=== PATIENT | female | born 1945 | race African-American/Black ===

== ENCOUNTER 2020-12-10 13:07 | Inpatient (IN) | payer BC ==
[~2020-12-10] VITALS: Ht 157.5 cm; Wt 84.5 kg
--- NOTE | ~2020-12-10 | EMS ---
[facility] [address] [place] [address] EMS Patient Care Report Name: OSCAR LAWSON Room #: 213-P ADM IN M.R.#: [id number] Admission: 12/10/20 Attend Phys: Benji Calderon MD Discharge: Date of : 49 Report #: [id number] THIS REPORT FOR: //name// Report Transmitted: 12/12/2020 13:13 EMS Care Summary [place], [place]/[facility] Incident [id number] @ 12/10/2020 12:33 Incident Location [address] [place] [address] Patient OSCAR PAZSGraceTODD Female, 75 Years 1945 Patient Address [address] [place], [place] [id number] Patient History Hypertension (HTN),Gastro-Esophageal Reflux Disease (GERD),End Stage Renal Disease (ESRD),Anemia,Neuropathy,Hyperparathyroidism,Chronic Kidney Disease, Patient Allergies No known allergies, Patient Medications Ondansetron, Heparin, Folic acid, Docusate Sodium, Torsemide, Trazodone, Alprazolam, Diphenhydramine, Carvedilol, Omeprazole, Lidocaine, Amlodipine, Loperamide, Loratadine, Chief Complaint HYPOTENSION Disposition Transported No Lights/Ophiem Dispatch Reason Sick Person Transported To [facility] Narrative P36 AND M537 DISPATCHED TO A DIALYSIS CENTER ON A SICK PERSON. P36 ARRIVED FIRST AND ESTABLISHED PT CONTACT. UPON EMS ARRIVAL, PT WAS STILL IN DIALYSIS [facility] [address] [place] [address] EMS Patient Care Report Name: OSCAR LAWSON Room #: 213-P ADM IN M.R.#: [id number] Admission: 12/10/20 Attend Phys: Benji Calderon MD Discharge: Date of : 49 Report #: [id number] CHAIR. P36 WAS OBTAINING VITAL SIGNS AND HAD PT CONNECTED TO 15L OF O2 VIA NRB. P36 MEDIC STATED PT WAS HYPOTENSIVE DURING DIALYSIS. DIALYSIS STAFF ATTEMPTED FLUID BOLUS BUT WAS UNSUCCESSFUL IN RAISING PT'S BP. PT DID NOT COMPLETE DIAYSIS. INITIAL BP FOR P36 WAS 66/50. P36 ALSO STATED PT HAD AN INITAL O2 SAT OF 87% ON 5L VIA NASAL CANNULA. P36 STATED DIALYSIS STAFF HAD PLACED PT ON O2, PT WAS NOT NORMALLY ON O2. P36 PLACED PT ON 15L OF O2 VIA NRB. P36 MONITOR SHOWED PT TO BE IN A NORMAL SINUS RHYTHM. 15L OF O2 INCREASED PT'S O2 SAT TO 97%. PT WAS A&O X 4. PT WAS LIFTED OUT OF CHAIR AND PLACED ONTO STRETCHER. PT WAS SECURED WITH SEATBELTS. PT WAS KEPT ON 15L OF O2. ADDITIONAL VITAL SIGNS WERE OBTAINED IN THE AMBULANCE. PT'S O2 SAT REMAINED AT 97%. MONITOR SHOWED PT TO STILL BE IN A NORMAL SINUS RHYTHM. PT TRANSPORTED TO [facility]. ARRIVED AT HOSPITAL. PT TRANSPORTED TO ER ROOM 8. PT WAS LIFTED OFF OF STRETCHER AND ONTO ER BED. SIDE RAILS WERE RAISED AND PT CARE WAS TRANSFERRED TO RECEIVING ER NURSING STAFF. Initial Vitals @PTAP: 67,BP: 66/50,Pain: 0/10,GCS: 15,SpO2: 97,CO Suspected: false @12:58P: 92,R: 16,BP: 57/53,Pain: 0/10,GCS: 15,CO: 0,SpO2: 98,Revised Trauma: 10,CO Suspected: false @12:55P: 95,R: 16,BP: 76/49,Pain: 0/10,GCS: 15,CO: 0,SpO2: 97,Revised Trauma: 11,CO Suspected: false Assessments @12:44MENTAL:Event Oriented,Place Oriented,Time Oriented,Person Oriented,SKIN:Pale,HEENT:LUNG SOUNDS:ABDOMEN:PELVIS//GI:EXTREMITIES:PULSE:Radial: 2+ Normal,NEURO: Impression Hypotension Procedures @PTA3-Lead ECGResponse: UnchangedSucceeded@PTAOxygen FlowRate: 15 Device: Non Re-breather Mask (NRB) Response: ImprovedSucceeded@12:44ALS AssessmentResponse: UnchangedSucceeded@12:48StretcherResponse: Unchanged@12:48Oxygen FlowRate: 15 Device: Non Re-breather Mask (NRB) Response: UnchangedSucceeded Timeline EMAIL OPERATIONS MANAGER,3-Lead ECG,Response: UnchangedSucceeded, EMAIL OPERATIONS MANAGER,Oxygen FlowRate: 15 Device: Non Re-breather Mask (NRB) Response: ImprovedSucceeded, EMAIL OPERATIONS MANAGER,BP: 66/50 M,PULSE: 67,RR: R,SPO2: 97 Ox,ETCO2: ,BG: ,PAIN: 0,GCS: 15, 12:32,Call Received 12:32,Dispatch Notified 12:33,Dispatched 12:34,En Route 12:42,On Scene [facility] [address] [place] [address] EMS Patient Care Report Name: OSCAR LAWSON Room #: 213-P ADM IN M.R.#: [id number] Admission: 12/10/20 Attend Phys: Benji Calderon MD Discharge: Date of : 49 Report #: [id number] 12:44,At Patient 12:44,ALS Assessment,Response: UnchangedSucceeded, 12:48,Stretcher,Response: Unchanged 12:48,Oxygen FlowRate: 15 Device: Non Re-breather Mask (NRB) Response: UnchangedSucceeded, 12:55,BP: 76/49 M,PULSE: 95,RR: 16 R,SPO2: 97 Ox,ETCO2: ,BG: ,PAIN: 0,GCS: 15, 12:57,Depart Scene 12:58,BP: 57/53 M,PULSE: 92,RR: 16 R,SPO2: 98 Ox,ETCO2: ,BG: ,PAIN: 0,GCS: 15, 13:02,At Destination 13:33,Call Closed Disclaimer v1.1 Copyright 2020 [employer] This EMS Care Summary contains data elements from the applicable legal record (which may be displayed differently). It is designed to provide pertinent information for the following purposes: continuity of care, clinical quality, and state data reporting. The complete legal record is available to ED staff and administrators of the receiving hospital in [employer] Patient Tracker. All data is provided "as is."
[~2020-12-10 13:07] MED LIST: ADVAIR 100-501 EACH INH; ALBUTEROL2.5 MG/0.5 INH; ALDACTONE50 MG PO; AMBIEN 10 MG TA10 MG PO; AMITRIPTYLINE H50 M2 PO; ASPIRIN81 M2 PO; BENTYL10 MG PO; CLARITIN10 MG PO; COZAAR 25 MG TA25 M1 PO; COZAAR100 MG PO; FLEXERIL PO; GLUCOPHAGE XR500 MG PO; GLUCOPHAGE500 MG PO; HYDROCODON-ACE1 EAC7 PO; KLOR-CON 10 ER10 MEQ PO; LABETALOL HCL200 MG PO; LASIX 20 MG TAB20 MG PO; NORVASC10 MG PO; NORVASC5 MG PO; SALONPAS PATCH1 EAC1; SPIRONOLACTONE25 M1 PO; TRANDATE300 MG PO; VENTOLIN HFA 1818 GM INH; VITAMIN D1000 UNI2 PO; VITAMIN D31000 UNI2 PO
[2020-12-10 13:08] VITALS: BP 93/55
[2020-12-10] MEDS ORDERED: ALPRAZOLAM 0.0.25 M1 PO (13:21)
[2020-12-10] MEDS ORDERED: BANOPHEN25 M1 PO (13:22)
[2020-12-10] MEDS ORDERED: LOPERAMIDE2 MG PO (13:22)
[2020-12-10] MEDS ORDERED: CARVEDILOL12.5 MG PO (13:22)
[2020-12-10] MEDS ORDERED: OMEPRAZOLE 20 M20 M1 PO (13:23)
[2020-12-10] MEDS ORDERED: CLARITIN10 M3 PO (13:23)
[2020-12-10] MEDS ORDERED: ZOFRAN4 MG PO (13:23)
[2020-12-10] MEDS ORDERED: DESYREL150 MG PO (13:24)
[2020-12-10] MEDS ORDERED: DEMADEX20 MG PO (13:24)
[2020-12-10 13:43] LABS: HEMATOCRIT 32.9 % (37.0-47.0); HEMOGLOBIN 10.5 gm/dL (12.0-15.0); MCH 27.2 pg (26.0-34.0); MCHC 31.8 g/dL (28.0-37.0); MCV 85.5 fL (80.0-100.0); PLATELET COUNT 207 thou/uL (150-400); RBC 3.85 mil/uL (4.20-5.00); RDW 19.7 % (10.5-14.5); WBC 21.3 thou/uL (4.0-11.0)
[2020-12-10 14:05] LABS: CREATININE 5.6 mg/dL (0.6-1.0); POTASSIUM 4.7 mmol/L (3.5-5.1)
[2020-12-10 14:10] LABS: ALBUMIN 2.3 g/dL (3.4-5.0); MAGNESIUM 1.6 mg/dL (1.8-2.4); TOTAL BILIRUBIN 0.6 mg/dL (0.2-1.0); TOTAL PROTEIN 6.4 g/dL (6.4-8.2); TROPONIN-I 0.06 ng/mL (<0.06)
[2020-12-10 14:13] LABS: ABSOLUTE NEUTROPHILS 17.7 thou/uL (1.4-8.2); METAMYELOCYTES 2 %; MYELOCYTES 1 %; POLYCHROMASIA OCCASIONAL
[2020-12-10 14:15] LABS: ANISOCYTOSIS 2+
[2020-12-10 22:59] VITALS: BP 79/52
[2020-12-10 23:58] VITALS: BP 78/50
[2020-12-11 00:34] VITALS: BP 83/50
[2020-12-11 04:45] VITALS: BP 92/46
--- NOTE | 2020-12-11 06:43 | NUR ---
PT ARRIVED VIA CART TO ROOM 213. PT IS ALERT AND ORIENT TIMES THREE, FORGETFUL AT TIMES TO SITUATION. HYPOTENSIVE; ASYMPTOMATIC PER PT. TOLERATING CLEAR LIQ. WOUND VAC WAS REMOVED IN ED, DRESSING OVER ABD WOUND INTACT, NOT DRY. TWO COLOSTOMY BAGS NOTED WITH PINK STOMAS. SR PER MONITOR. WILL CONTINUE TO MONITOR.
[2020-12-11 07:50] VITALS: BP 96/53
--- NOTE | 2020-12-11 09:33 | EKG ---
[address] [address] ELECTROCARDIOGRAM REPORT Name: OSCAR LAWSON Room #: 213- ADM IN M.R.#: [id number] Admission: 12/10/20 Attend Phys: Benji Calderon MD Discharge: Date of : 49 Report #: [id number] [facility] ED Test Date: 2020-12-10 Test Time: 13:53:36 Pat Name: OSCAR BROOKS Department: Room: Count includes the [facility] Gender: F Elder Assistant: unknown : 1945 Requested By: Teofilo Ramachandran Order Number: [id number] MD: Joey Gordon Measurements Intervals Grant Rate: 95 P: 52 WV: 184 QRS: -47 QRSD: 85 T: 109 QT: 352 QTc: 443 Interpretive Statements Sinus rhythm Abnormal R-wave progression, early transition LVH with secondary repolarization abnormality Inferior infarct, old Compared to ECG 11/22/2013 21:26:58 Sinus bradycardia no longer present Grant has shifted leftward Poor R wave progression is now present Electronically Signed On 12-11-2020 9:33:31 CDT by Joey Gordon [email or web address] <ELECTRONICALLY SIGNED> By: Joey Gordon MD, [facility] 12/11/20 0933 [id number] [id number] Joey Gordon MD, [facility] /EPI
[2020-12-11 11:20] VITALS: BP 83/49
--- NOTE | 2020-12-11 11:39 | NUR ---
cm completed the initial assessment with pt who indicated she was at "[facility]" for rehab, but pt does not want to rtrn to skilled. pt wants to return home with w/hh. pt has hx of hh but dont recall what agency she used nor does she have a preference. [facility]. pt goes to outpt [facility] [id number] at 10am. pt has w/c, wlkr and cane. pt has hx with [facility] as well. the current kaitlynn is for pt to d/c on Mon or Mon with hh. Jordan ([facility]) [phone] -phone fax - [phone]
[2020-12-11 15:20] VITALS: BP 92/58
--- NOTE | 2020-12-11 15:27 | NUR ---
OSTOMY CARE; PT AWAKE, ALERT, COOPERATIVE, VERY PLEASANT, STATES ABD SURGERY WAS DONE ~2 WEEKS AGO AT [facility], BUT COULD NOT REMEMBER NAME OF SURGEON, ILEOSTOMY STOMA RED FLAT W/ SKIN SURFACE, DRAINING BILISH LIQ STOOL, PERISTOMAL AREA EXCORIATED, BLEEDING, MARATHON PREP APPLIED W/ ANTHONY CUT TO FIT POUCH W/ ADAPT RING UNDER WAFER, COLOSTOMY STOMA L SIDE ABD, BROWNISH WITT NONVIABLE TISSUE, SCANT DRAINAGE BILISH STOOL, PERISTOMAL AREA ADRIAN MARATHON PREP APPLIED AND 2 PIECE POUCH, ABD WOUND MIDLINE DRAINING LARGE AMT LIQ BILISH STOOL, AREA VERY EXCORIATION, ADRIAN, BLEEDING, VALENTÍN ANGELES STUD BEEF CATTLE FARMER COORDINATOR HERE, ASSISTING W/ CARE, PACKED WOUND W/ DRAWTEX AND WOUND DRAINAGE SUPERVISOR WATERPROOFING APPLIED, MARATHON PREP ALSO APPLIED W/ ADAPT RING UNDER POUCH, SUGGEST TO REPLACE/REPACK WOUND W/ DRAWTEX UNTIL SEEN BY DR MILLER IN AM, SUPPLIES AT BS RECOMMENDATIONS; ANTHONY CUT TO FIT POUCH TO ILEOSTOMY AND COLOSTOMTY STOMA, CHANGE PRN WOUND DRAINAGE SUPERVISOR WATERPROOFING TO ABD WOUND, PACK W/ DRAWTEX NEEDED, HAS OPEN WINDOW TO ASSESS WOUND DISTILLERY MANAGER AWARE
[2020-12-11 20:50] VITALS: BP 90/57
[2020-12-12 04:45] VITALS: BP 93/60
--- NOTE | 2020-12-12 07:00 | NUR ---
RECIEVED PT FROM DAY SHIFT, PT C/O PAIN AND PT STATES SHE FEEL RESTLESS AND HAVE PAIN. BELA SWEAT BAND SEPARATOR CALLED FOR PAIN MEDIATION. PT RESTED APPROX 4 HOURS , BUT REMAINS RESTLESS. NSR ON HAND STONER, WILL CONTINUE WITH CURRENT PLAN OF CARE.
[2020-12-12 08:10] VITALS: BP 109/60
[2020-12-12 11:35] VITALS: BP 97/55
[2020-12-12 15:30] VITALS: BP 85/53
[2020-12-12 20:15] VITALS: BP 86/51
[2020-12-13 04:02] VITALS: BP 73/43; BP 73/52
[2020-12-13 04:04] LABS: CALCIUM 9.1 mg/dL (8.5-10.1); POTASSIUM 4.3 mmol/L (3.5-5.1)
[2020-12-13 04:09] LABS: CREATININE 4.5 mg/dL (0.6-1.0)
--- NOTE | 2020-12-13 04:13 | NUR ---
PT RESTING QUIETLY IN BED POST DIALYSIS, PRN PAIN MEDS GIVEN FOR ABD PAIN, ASSESSMENT CHARTED, VSS, CON'T TO MONITOR PER PPOC.
[2020-12-13 04:22] LABS: HEMATOCRIT 34.3 % (37.0-47.0); MCH 27.8 pg (26.0-34.0); MCHC 32.1 g/dL (28.0-37.0); MCV 86.4 fL (80.0-100.0); RBC 3.98 mil/uL (4.20-5.00); RDW 20.3 % (10.5-14.5); WBC 10.8 thou/uL (4.0-11.0)
[2020-12-13 05:36] LABS: HEPATITIS B SURFACE AG Negative (Negative)
[2020-12-13 06:04] VITALS: BP 86/58
--- NOTE | 2020-12-13 10:23 | HC ---
[facility] [place] [address] [address] [place] [address] CONSULTATION Name: BARRERA BROOKSOSCAR D Room #: 213-P ADM IN M.R.#: [id number] Admission: 12/10/20 Attend Phys: Benji Calderon MD Discharge: Date of : 49 Report #: [id number] THIS REPORT FOR: cc: Rosalia Zuñiga Mohammad K. DO Jetmore, Allen B. MD ~ WOUND CARE CONSULTATION NOTE REASON FOR CONSULTATION: Status post perforated diverticulitis with possible enterocutaneous fistula. HISTORY OF PRESENT ILLNESS: The patient is a 75-year-old woman with end-stage renal disease on hemodialysis and recent abdominal surgery at [facility] for apparent perforated diverticulitis. Unfortunately, we do not have the operative note from that facility, but by patient history, she had perforated diverticulitis requiring surgery. She has an apparent ileostomy, which began to have high output drainage. She had been discharged home and has developed drainage from the wound, possible enterocutaneous fistula. There is a second draining wound to the lateral abdomen. Etiology not certain. The patient at home had noticed increased ostomy output, abdominal pain and drainage from the wound. Admission white blood count on 12/10, ,300. Admission albumin 2.3. Wound care was consulted due to drainage from the abdominal wound for ileostomy care and for possible enterocutaneous fistula. PAST MEDICAL HISTORY: Hypertension, end-stage renal disease, also known history above. The patient awoke from surgery with a wound of the forehead of uncertain etiology, whether this is a pressure ulcer or burn. This appears to be healing. FAMILY HISTORY: Hypertension. SOCIAL HISTORY: Lives at home with a sister. PHYSICAL EXAMINATION: GENERAL: Shows an alert, elderly woman, alert, pleasant, conversant. She has a 4 cm horizontal linear wound of the forehead with some black discoloration of the skin and slightly open epithelializing area. Clinically, this appears to possibly be a pressure ulcer. HEENT: Mucous membranes are moist. NECK: Supple. LUNGS: Respirations are unlabored. ABDOMEN: Obese. Abdominal exam shows an apparent ileostomy, which is pouched with high volume of clear green liquid output. There is a vertical incision lateral to this with intact ellis. The lower portion of the wound is open and dehisced with an open wound measuring 3.5 x 1 x 4 cm deep. This is draining some slightly green fluid of small volume, but is lined with granulation tissue. [address] [address] CONSULTATION Name: OSCAR LAWSON Room #: 213-P [facility] IN [facility].#: [id number] Admission: 12/10/20 Attend Phys: Benji Calderon MD Discharge: Date of : 49 Report #: [id number] This had in it Drawtex, which was mildly saturated and the Drawtex was replaced. There is healthy granulation tissue in the wound. On the lateral abdomen, there is a pouched wound of uncertain etiology. This has minimal volume. I did not remove the pouch. Extremities show no wound. IMPRESSION: 1. End-stage renal disease with hemodialysis. 2. Leukocytosis. White blood count 21,300. 3. Severe protein calorie malnutrition, albumin 2.3. 4. Obesity. 5. History of recent perforated diverticulitis with abdominal surgery, details uncertain ____ facility, I am uncertain whether she had a resectional procedure and whether ileostomy was created at that time. 6. 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 7. Lateral wound, which is pouched, uncertain whether this is fistula or by patient's history of urostomy. At this point in time, the ileostomy was well pouched with high output. The abdominal surgical wound was well controlled with daily packing with a full sheet of Drawtex cut in 1 strip with a pouch over this. There is a lateral wound with small volume, which is also pouched. We will need to review outside operative notes to define postsurgical anatomy. The patient is being treated with antibiotics, kept n.p.o. and hydration to keep up with ileostomy output. Wound care team will follow. <ELECTRONICALLY SIGNED> By: Sandro Lehman MD 12/13/20 1023 0627 [id number] Sandro Lehman MD /nt
[2020-12-13 16:50] VITALS: BP 87/55
--- NOTE | 2020-12-13 19:31 | NUR ---
DRESSING CHANGED TO ABDOMINAL WOUNDS. LEAKAGE NOTED TO UROSTOMY AND NEW BAG PLACED. SHE DID COMPLAIN OF PAIN AND PRN PAIN MEDS ADMINISTERED. WILL CONT WITH PLAN OF CARE.
[2020-12-13 22:35] VITALS: BP 84/58
[2020-12-14 04:33] VITALS: BP 64/39
[2020-12-14 07:45] VITALS: BP 64/34
--- NOTE | 2020-12-14 08:31 | NUR ---
PTS ILEOSTOMY BAG LEAKING AND CHANGED AND REINFORCED MULTIPLE TIMES THRU THE NIGHT, FISTULA SIGHT ALSO BECAME SATURED FROM ILIEOSTOMY AND CHANGED IT WITH A WET TO DRY DRESSING AND COVERED IT WITH OPSITE AND ORDERED A CONSULT FOR THE BUSINESS SUPPORT SPECIALIST, WHO CAME BY THIS AM, SKIN IS IRITATTED AND WEEPING, ONE STAPLE REMAINS AT TOP OF INSISION, PRN PAIN MEDS GIVEN FOR C/O OF ABD PAIN, REPOSITIONED AND CLEANED UP FREQUENTLY, LEFT HAND IV INFILTRATED AND REPLACED IN LEFT WRIST, BP REMAIN LOW IN 70'S AND 80'S MIDODRINE INCREASED TO QID, GIVEN EARLY THIS AM FOR BP 64/39, ZOFRAN GIVEN FOR C/O NAUSEA, L CHEST TESSEO REMAINS INTACT, REPORT GIVEN TO NEXT SHIFT TO CON'T PPOC.
--- NOTE | 2020-12-14 09:05 | NUR ---
OSTOMY CARE; ALERT, AWAKE, COOPERATIVE, POUCHES BOTH LEAKING, NEW POUCH TO R SIDE ILEOSTOMY, SKIN VERY EXCORIATED, ADRIAN, NO BLEEDING, MARATHON SKIN PREP APPLIED, ADAPT RING AND 2 PIECE CUT TO FIT HIGH OUTPUT POUCH CONNECTED TO DEP DRAINAGE SYSTEM, STOMA RED VIABLE FLAT W/ SKIN SURFACE, BILISH LIQ STOOL PRESENT, COLOSTOMY STOMA L SIDE, BROWNISH WITT TISSUE SLOUGHING OFF, PERISTOMAL SKIN SLIGHTLY ADRIAN, NOT BLEEDING, MARATHON PREP AND 2 PIECE ANTHONY CUT TO FIT APPLIANCE APPLIED, SCANT BILISH LIQ STOOL PRESENT, ABD WOUND MEASURES 5CM L X 3CM W X 5.5CM D, TISSUE MORE ADRIAN, SOME HEALING, NO BILISH STOOL DRAINAGE NOTED TODAY, CLEANSED AND REPACKED W/ DRAWTEX, ABD PAD, TRANSPARENT DRSG, SUPPLIES AT RECOMMENDATIONS; MARATHON SKIN PREP TO BOTH STOMAS EXCORIATED SKIN, HIGH OUTPUT ANTHONY POUCH TO ILEOSTOMY R SIDE, CUT TO FIT ANTHONY POUCH TO L SIDE COLOSTOMY, ADAPT RINGS UNDER WAFER WOUND CARE PER WOUND DR STRUCTURES ENGINEER AWARE
[2020-12-14 11:45] VITALS: BP 72/42; BP 75/42
--- NOTE | 2020-12-14 15:58 | NUR ---
Patient admits from [facility] where she has been rec skilled care. Patient prev at [place], dc to [facility]. From [facility] to [facility]. Patient dializes at [facility]. she prev lives with spouse. She has steps to enter home then all needs on one level. patient has wc, walker, at home. She prev utilized [facility] [employer] [facility] [facility] van for transport to/from dialysis. Patient does not want to return to skilled care. she admitted to [facility] from dialysis clinic. Sp with Anaya Longoria and requested they send face sheet and mars. Therapy evals in process. wound vac patient has is from [facility].
[2020-12-14 16:10] VITALS: BP 71/41
--- NOTE | 2020-12-14 16:41 | NUR ---
PT RESTING COMFORTABLY. PT HAS BEEN HYPOTENSIVE THROUGHOUT SHIFT, MULTIPLE INTERVENTIONS HAVE BEEN DONE PER PROVIDERS ORDERS. PT ASYMPTOMATIC. PT LEFT WRIST PIV INFILTRATED, IV DC'D. NEW PIV PLACED BY IV ACCESS TEAM. PT MAY POSSIBLY BE TRANSFERED TO ICU FOR VASOPRESSOR ADMINISTRATION. ILIOSTOMY/COLOSTOMY/MIDLINE FISTULA DRESSINGS CHANGED BY OSTOMY NURSE. ILIOSTOMY NOW CONNECTED TO BEGUM CATHETER BAG AND DRAINING WELL. WOUND CARE AND ID HAVE BEEN CONSULTED. PT HAS BEEN THOUROUGHLY UPDATED AND EDUCATED ON PT CONDITION AND POC. PT NOT PROGRESSING TOWARDS POC. PT AFEBRILE, ANEURIC, POOR APPETITE.
[2020-12-14 17:33] LABS: HEMATOCRIT 36.5 % (37.0-47.0); HEMOGLOBIN 11.7 gm/dL (12.0-15.0); MCH 27.3 pg (26.0-34.0); MCV 85.4 fL (80.0-100.0); RBC 4.28 mil/uL (4.20-5.00); RDW 19.7 % (10.5-14.5); WBC 15.1 thou/uL (4.0-11.0)
[2020-12-14 20:15] VITALS: BP 149/48
[2020-12-15 04:45] VITALS: BP 116/60
--- NOTE | 2020-12-15 05:09 | NUR ---
PATIENTS CARS WERE ASSUMED AT SHIFT CHANGE. PATIENT WS ASSESSED AND MEDS WERE PASSED. PATIENT VITALS ARE STABLE THIS SHIFT. A CULTURE ORDER PLACED AT 1500 YESTERDAY WAS FOUND. CULTURE WAS SENT AT APPROX 2058. PATIENT WAS ABLE TO SLEEP WELL THIS SHIFT. ROUNDS WERE MADE. THE BED ALARM IS ON. THE BED IS IN A LOW AND LOCKED POSITION.
[2020-12-15 07:20] VITALS: BP 191/101
[2020-12-15 10:40] VITALS: BP 87/56
[2020-12-15 11:55] VITALS: BP 160/47
[2020-12-15 15:40] VITALS: BP 102/43
--- NOTE | 2020-12-15 16:21 | NUR ---
Patient evaled for acute rehab and patient not accepted could not tolerate acute rehab. patient strongly wants to return home at discharge. she does not want to return to [facility]. Spoke with dtr Sharon [phone] she reports patient has family support. she can stay with patient and her son can assist as well. Discussed her with need to return to community dialysis and transport to from difficult. Left skilled list in room for dtr to review.
--- NOTE | 2020-12-15 18:28 | NUR ---
ASSESSMENT CHARTED- MEDS PER JUN - DONNA DIET AND FLUIDS. GIVEN ZOFRAN X 2 DOSES FOR CO'S OF NAUSEA WITH EFFECT - OXY FOR HEADACHE WITH EFFECT - PT TESSIO CATH CLOGGED THIS AM - DIALYSIS NURSE USED [facility] AND DISLYSIS GIVEN THIS AFTERNOON. DRESSING TO ABDO COMPLETED WITH MODE AMOUNT OF GREEN THICK PUSS/ DRAINAGE PRESENT. SKIN AROUND WOUND SITE RED/ IRRITATED AND PAIANFUL WHEN TAPE REMOVED. R FISTULA NON FUCTIONING. COMPLETEING DIALYSIS. NO CO'S AT THE PRESENT TIME.
[2020-12-15 20:15] VITALS: BP 156/52
[2020-12-16 04:45] VITALS: BP 125/55
[2020-12-16 07:30] VITALS: BP 113/56
--- NOTE | 2020-12-16 10:41 | NUR ---
OSTOMY CARE; AWAKE, ALERT, PLEASANT, ILEOSTOMY POUCH R SIDE ABD STILL INTACT, CHANGED TO ASSSESS PERISTOMAL SKIN, STILL ADRIAN, SLIGHT IMPROVEMENT, MARATHON PREP APPLIED W/ ADAPT RING UNDER WAFER, HIGH OUTPUT POUCH CONNECTED TO DEP DRAINAGE, LIQ BILISH STOOL NOTED, PHOTO TAKEN OF ILEOSTOMY SITE AND MID LINE ABD WOUND, PLACED IN CHART, COLOSTOMY POUCH STILL INTACT L SIDE ABD, NO OUTPUT, MIDLINE WOUND W/ SCANT YELLOWISH DRAINAGE THIS AM, REPACKED W/ DRAWTEX, GAUZE, ABD PAD, PERIWOUND AREA STILL ADRIAN, MARATHON PREP APPLIED,SUPPLIES AT BS, PAGING DR PEREZ TO REVIEW MIDLINE ABD WOUND CARE RECOMMENDATIONS; CHANGE POUCH Q 2-4 DAYS AND PRN, EMPTY PRN BAND AND CUFF CUTTER AWARE CHANGE POUCH Q 2-4 DAYS AND PRN, EMPTY PRN
[2020-12-16] MEDS ORDERED: MIDODRINE HCL 55 M1 PO (10:54)
[2020-12-16] MEDS ORDERED: CHOLESTYRAMINE L4 GM PO (10:55)
[2020-12-16] MEDS ORDERED: ALPRAZOLAM 0.0.25 M1 PO (10:55)
[2020-12-16] MEDS ORDERED: LOPERAMIDE2 MG PO (10:56)
[2020-12-16] MEDS ORDERED: ZOFRAN4 MG PO (10:57)
[2020-12-16] MEDS ORDERED: SOLU-CORTE100 MG/21 CHEWABLE (10:58)
[2020-12-16] MEDS ORDERED: ACIDOPHILUS1 EAC4 PO (10:59)
[2020-12-16] MEDS ORDERED: LOMOTIL TABLET1 EACH PO (10:59)
[2020-12-16] MEDS ORDERED: OXYCODONE HCL 55 MG PO (10:59)
[2020-12-16] MEDS ORDERED: CIPRO500 M1 PO (11:00)
[2020-12-16] MEDS ORDERED: METRONIDAZOLE500 M4 PO (11:01)
[2020-12-16] MEDS ORDERED: FLAGYL500 M1 PO (11:01)
[2020-12-16 11:30] VITALS: BP 78/38
--- NOTE | 2020-12-16 12:18 | HC ---
[facility] [place] [address] CONSULTATION Name: BARRERA BROOKSOSCAR D Room #: 213-P ADM IN M.R.#: [id number] Admission: 12/10/20 Attend Phys: Benji Calderon MD Discharge: Date of : 49 Report #: [id number] THIS REPORT FOR: cc: Rosalia Zuñiga Mohammad K. DO Barry, Joseph W. MD ~ DATE OF SERVICE: 12/15/2020 INFECTIOUS DISEASE CONSULTATION ATTENDING PHYSICIAN: Dr. Jean. REASON FOR EVALUATION: Abdominal wound dehiscence. The patient with colitis. HISTORY OF PRESENT ILLNESS: Chart reviewed and the patient was examined. This is a 75-year-old woman with extensive medical history in particular last few months. She has known history of diverticulitis. This was at some point complicated by perforation. Postoperative course was complicated by hematoma. She has had multiple surgeries and had multiple hospital stays including both acute care as well as long-term care facilities in rehabs. She ultimately has a colostomy as well as an ileostomy. She got a mid abdominal longitudinally oriented incision that apparently has dehisced as well. She has high output from the ileostomy, minimal from the colostomy at this point. She notes not having significant pain associated with the abdomen. On questioning additionally denies systemic illness of other than progressive weakness and fatigue. She has had no fevers, chills. Appetite has been fair. Denies any pulmonary-related complaints. She has not required supplemental oxygen. To date initially had two blood cultures collected at time of admission, which are sterile thus far. An abdominal culture sent yesterday gram stain showed many PMNs, few gram-negative rods and rare gram-positive cocci. It is notable that she has been on multiple courses of antibiotics she states, although these were other facilities initiated on therapy with ceftriaxone and Flagyl at the time of admission. ALLERGIES: DESCRIBED CODEINE WITH DUMPING STOMACH CRAMPING. CURRENT MEDICATIONS: Include pantoprazole, hydrocortisone, cholestyramine, loperamide, midodrine, oxycodone, alprazolam, ciprofloxacin, lorazepam, metronidazole, p.r.n. analgesics and antiemetics. PAST MEDICAL HISTORY: As described above. In addition, had hypertension, has diabetes mellitus, non-insulin requiring; IBS, obstructive sleep apnea, TIAs, previous hysterectomy, cholecystectomy, tonsillectomy. SOCIAL HISTORY: Nonsmoker. No illicit drug use. Apparently, occasional ethanol in the past. [facility] [address] [place] [address] CONSULTATION Name: BARRERA BROOKSOSCAR Room #: 213-P [facility] IN [facility]#: [id number] Admission: 12/10/20 Attend Phys: Benji Calderon MD Discharge: Date of : 49 Report #: [id number] FAMILY HISTORY: Noncontributory. REVIEW OF SYSTEMS: Otherwise, unremarkable with the exception of the above. PHYSICAL EXAMINATION: GENERAL: She appears chronically ill, undernourished. I think there is a component of depression, mild to moderate distress. VITAL SIGNS: Temperature 97, pulse 72, respirations 18, blood pressure is 87/56. SKIN: Warm, dry, no rashes. She is not diaphoretic. HEENT: Normocephalic. Extraocular muscles intact. NECK: Supple. LUNGS: Diminished breath sounds. ABDOMEN: Extensive scarring. EXTREMITIES: Bilateral ostomies in place. Ileostomy on the right. Colostomy on the left. Scattered dressing, midline incision that has dehisced, malodor, some debridement and drainage noted. GENITOURINARY AND RECTAL: Deferred. LABORATORY DATA: Early culture is pending. Gram stain as noted above. Few gram-positive rods, rare gram-positive cocci and many PMNs. Lactic acid of 2.3. CBC from yesterday; white count of 15.1, H and H 11.7 and 36.5, platelets of 254. Electrolytes previously 12/13/2020, sodium 136, potassium 4.3, chloride 96, bicarbonate is 30, anion gap of 10, BUN and creatinine 22 and 4.5, glucose of 83. Initial CT abdomen and pelvis done on admission noted anterior abdominal wall surgical clips, small fluid collection anterior right pannus, left-sided colostomy, mild thickening, stranding around the valve. No focal loculated fluid collections, large right adrenal mass, fat containing favors myolipoma. ASSESSMENT: Abdominal wound dehiscence in setting of multiple surgeries, bilateral abdominal ostomy in setting of diabetes mellitus, it has been complicated by end-stage renal disease on dialysis. PLAN: We will continue empiric therapy at this point, await culture results. At this point, she is not exhibiting evidence of drained pyogenic focus of infection. Certainly at risk including ____ related infectious complications. Continue to monitor expectantly. We will add incentive spirometry. Continue to follow expectantly. <ELECTRONICALLY SIGNED> By: Juan Echeverria MD 12/16/20 1218 [id number] [id number] Juan Echeverria MD /nt
[2020-12-16 16:00] VITALS: BP 81/55
--- NOTE | 2020-12-16 16:10 | NUR ---
Report from unit cm that pt adament about going home and dtr Sharon is supportive of this [phone]. Family willing to provided 24hr care and get her in and out for Dialysis [facility] t-th-sat 1100am. Our route delivery clerk will contact dtr to review ostomy care. Referral faxed and called to Griselda in intake at the A. They will accept and can see her sat/or monday. Unit cm working on referral to [facility] bed/pina lift and RW. Pt has a w/c. Tank Charger updated SOLID WASTE LANDFILL TECHNICIAN at [facility] and she indicates the family will need to start mo medicaid [place] and share a fare apps on line. They are not able to help get the pt in and out of the car. Will f/u with pt's dtr regarding the logistics and if they are able to realistically provide care.
[2020-12-16 16:21] LABS: ABSOLUTE NEUTROPHILS 11.5 thou/uL (1.4-8.2); BASOPHILS 0.1 % (0.0-2.0); HEMATOCRIT 36.3 % (37.0-47.0); HEMOGLOBIN 11.2 gm/dL (12.0-15.0); LYMPHOCYTES 6.6 % (24.0-44.0); MCH 27.5 pg (26.0-34.0); MCHC 30.8 g/dL (28.0-37.0); MCV 89.2 fL (80.0-100.0); MONOCYTES 3.8 % (1.0-8.0); PLATELET COUNT 208 thou/uL (150-400); POLYS 89.5 % (36.0-66.0); RBC 4.07 mil/uL (4.20-5.00); RDW 19.6 % (10.5-14.5); WBC 12.9 thou/uL (4.0-11.0)
--- NOTE | 2020-12-16 16:30 | NUR ---
Patient sp with phys and reports she wants to return home. No facility and no rehab. Phys put in dc orders. Sp with dtr Sharon she reports family not prepared for home today. Patient requests dc Monday when her family can assist with her care. Dr Jean notified. Dtr to have training on monday for ostomy and wound care. Patient has sliding board and wc at home. She reports her brother is Rn he is retired and can assist. Dtr reports she can stay with patient intially. Discussed with patient and dtr concern for transport for community dialysis. Patient insists she wants to return home. Sp with Estella. Patient will need pina lift, hosp bed and walker for home. [facility] can deliver to home 12/17. Faxed clinical to [facility]. SHAJI WALTON accepting.
[2020-12-16 16:35] LABS: ALBUMIN 2.4 g/dL (3.4-5.0); CREATININE 4.4 mg/dL (0.6-1.0); TOTAL BILIRUBIN 0.5 mg/dL (0.2-1.0); TOTAL PROTEIN 5.7 g/dL (6.4-8.2)
[2020-12-16 16:37] LABS: POTASSIUM 5.4 mmol/L (3.5-5.1)
[2020-12-16 19:49] VITALS: BP 87/48
--- NOTE | 2020-12-17 03:23 | NUR ---
PT REMAIN ALERT AND ORIENT TIMES THREE, FORGETFUL ON OCCASSIONS. BP SOFT. DENIES SOB, DOES C/O GENERALIZD PAIN AND NAUSEA. PRN PAIN MED AND ZOFRAN GIVEN WITH GOOD RESULTS. VSS, SR PER MONITOR. POOR PROGRESS TOWARDS DC GOALS. WILL CONTINUE TO MONITOR.
[2020-12-17 05:24] VITALS: BP 88/49
[2020-12-17 08:34] VITALS: BP 98/62
[2020-12-17 11:40] VITALS: BP 98/63
[2020-12-17 16:04] VITALS: BP 81/52
--- NOTE | 2020-12-17 16:33 | NUR ---
PT IS PROGRESSING TOWARDS CARE, HAD DIALYSIS FOR 3 HORS TODAY, NO FLUIDS TAKEN OUT. ILEOSTOMY AND COLOSTOMY IN PLACE. MIDLINE DRESSING CHANGED PER ORDER. FALL PREC. IN PLACE. ANTICIPATING FOR D/C TMR
--- NOTE | 2020-12-17 17:31 | NUR ---
Followup visit made with pt at bedside. She is aware that Anaay of [facility] gilbert was here to citrus picker wound vac and offer pt other facility options within their network as well as a plan B if she goes home and needs to readmit to them. Pt aware but anxious to move forward with plan for home tomorrow. She indicates that she was using [employer] fare for rides to dialysis a few months ago prior to this major illness. Message left for [facility] to confirm she can resume rides with them next Monday for dialysis. She is adament her family can get her there if she needs to reapply for [facility] services. Script for dme being faxed to [facility] and they were setting up delievery today in coordination with the dtr. Dtr Jaqui to come in for training on ostomy care/wounds tomorrow. Therapy also called and spoke with her about pt's limited mobility. Will confirm dme setup and hh with [facility] tomorrow along with next dialysis tx, can the pt go from Monday to Monday.
[2020-12-17 17:37] VITALS: BP 81/52
--- NOTE | 2020-12-17 17:56 | NUR ---
FAXED RX SCRIPT TO [facility] FOR 1) JOCELYN LIFT, 2) SEMI-ELECTRIC HOSPITAL BED, AND 3) FRONT WHEEL WALKER. WILL CONFIRM WITH JAZMIN/LIAISON THAT THEY RECEIVED. [facility] FAX [phone]; Venancio [phone] JAZMIN
[2020-12-17 19:28] VITALS: BP 109/60
--- NOTE | 2020-12-17 22:30 | NUR ---
PT RESTING IN BED, EXPRESSING THAT SHE WANTS TO FALL ASLEEP AND NOT BE AWAKENED. ILEOSTOMY AND COLOSTOMY INTACT. CHEST TESIO INTACT. PT REQUESTED APPLESAUCE AND PROVIDED. LUNGS DIMINISHED. PT REQUESTING PRN PAIN MED BE PROVIDED AT NEXT AVAILABLE TIME. BED ALARM ON.
[2020-12-18] VITALS (8 sets, daily range): BP systolic 74–109; BP diastolic 38–62
--- NOTE | 2020-12-18 10:14 | NUR ---
OSTOMY/WOUND CARE; ALERT, COOPERATIVE, VERY PLEASANT, DAUGHTER UNABLE TO COME THIS AM TO SEE WOUND/OSTOMYC CARE, FAMILY MEMBER TO COME THIS PM, INSTRUCTED BREAKER ENGINEER TO MAKE SURE FAMILY KNOWS HOW TO EMPTY POUCH THAT WILL NEED TO BE DONE PRIOR TO HOME HEALTH VISIT TOMORROW, ABD WOUND HEALING, SCANT DRAINAGE, SEE PROCESS INTERVENTIO FOR WOUND DETAILS, PERIWOUND AREA HEALING, PHOTOS TAKEN OF STOMAS AND WOUND AND PLACED IN CHART, HIGH OUTPUT TO ILEOSTOMY BLOCKED W/ UNDIGESTED FOOD PARTICLES, STOOL THICKER, CHANGED USING HOLLSITER CONVEX 1 05/08' POUCH DRAINAGE, PERISTOMAL SKIN IMPROVING, MARATHON SKIN PREP APPLIED W/ ADAPT RING, NO STOOL PER COLOSTOMY, NEW POUCH HOLLSITER CUT TO FIT APPLIED, PERISTOMAL SKIN INTACT, SUPPLIES W/ INSTRUCTIONS PLACED AT BS RECOMMENDATIONS; DAILY DRSG CHANGES ABD WOUND, W/ AQUALCEL AG, CHANGE ILEOSTOMY POUCH W 2-4 DAYS AND PRN BREAKER ENGINEER AWARE
--- NOTE | 2020-12-18 12:48 | NUR ---
Dc plan for home today confirmed with pt at bedside and the care team. Pt's dtr will be here this afternoon for ostomy/wound care trng. Hh orders faxed to the [facility] for start of care this weekend. DC summary and flow sheets faxed to [facility] for resumption of outpt tomorrow. [employer] called back and the pt is still active with them. She will call lino with her acct number and schedule for w/c van ride in am to dialysis 11am chair time. DME being delievered by willard cantor 2:30-4:30 today. Pt has let her family know so they will be there. Nicholas almaraz vouchered per [facility] transport for 7-8pm transport home tonight and pt's family will be there to help get her in(5steps into house/5 steps up to bedroom). Pt has her w/c at home in the garage. Family is willing to transport the pt if share a fare is not able to in the am. All parties updated. Pt excited to dc home today.
--- NOTE | 2020-12-18 15:12 | NUR ---
PT IS AXOX3, PT NOT ALWAYS AWARE OF TIME. VS SOFT BP, AFEBRILE, SR ON MONITOR. CASE MGMT CONSULTED. PT IS TO D/C HOME WITH HH. HOME HEALTH ARRANGEMENTS INCLUDE JOCELYN LIFT, ELECTRIC WHEELCHAIR, AND HOSPITAL BED. PT ALSO HAS ARRANGEMENTS FOR DIALYSIS TOMORROW, 12/19. POC IS TO CONTINUE ABX THERAPY AT HOME. OSTOMY WOUND CARE COMPLETED THIS AM. PT TO GO HOME WITH OSTOMY ITEMS. FALL PRECAUTIONS IN PLACE. AWAITING TRANSPORTATION THIS EVENING FOR HOME.
--- NOTE | 2020-12-18 18:39 | NUR ---
PT D/C AT 1800 TRANSPORTED BY CART TO HOME. ALL WOUND CARE ITEMS PROVIDED. PT EDUCATION CONDUCTED. NO CONCERNS AT THIS TIME.
== END 2020-12-18 18:10 | disposition home health service (06) | DRG 391 ==
LOC: ER 13:07 → EROBS 18:12 → 2N 18:12
PROVIDERS: Emergency Medicine; Internal Medicine; Internal Medicine Nephrology; Specialist; ADMIT Hospitalist; ATTEND Hospitalist
PROC: 5A1D70Z Performance of Urinary Filtration, Intermittent, Less than 6 Hours Per Day (ICD-10-PCS; principal; 2020-12-11)
DX: K52.9 Noninfective gastroenteritis and colitis, unspecified (principal); R57.1 Hypovolemic shock; N18.6 End stage renal disease; E43 Unspecified severe protein-calorie malnutrition; T81.30XA Disruption of wound, unspecified, initial encounter; I12.0 Hypertensive chronic kidney disease with stage 5 chronic kidney disease or end stage renal disease; K57.20 Diverticulitis of large intestine with perforation and abscess without bleeding; Z20.822 Contact with and (suspected) exposure to COVID-19; Z96.652 Presence of left artificial knee joint; I95.9 Hypotension, unspecified; D72.829 Elevated white blood cell count, unspecified; G47.33 Obstructive sleep apnea (adult) (pediatric); E27.9 Disorder of adrenal gland, unspecified; D63.8 Anemia in other chronic diseases classified elsewhere; E03.9 Hypothyroidism, unspecified; E11.22 Type 2 diabetes mellitus with diabetic chronic kidney disease; G47.00 Insomnia, unspecified; R53.81 Other malaise; F41.9 Anxiety disorder, unspecified; E66.01 Morbid (severe) obesity due to excess calories; Z90.710 Acquired absence of both cervix and uterus; Z90.49 Acquired absence of other specified parts of digestive tract; Z86.73 Personal history of transient ischemic attack (TIA), and cerebral infarction without residual deficits; Z93.3 Colostomy status; Z88.6 Allergy status to analgesic agent; Z68.34 Body mass index [BMI] 34.0-34.9, adult; Z82.49 Family history of ischemic heart disease and other diseases of the circulatory system; Z83.3 Family history of diabetes mellitus
CPT/HCPCS: 10081; 32100

== ENCOUNTER 2020-12-21 15:33 | Inpatient (IN) | payer OTHER ==
[~2020-12-21] VITALS: Ht 160 cm; Wt 81.6 kg
--- NOTE | ~2020-12-21 | EMS ---
[address] [address] EMS Patient Care Report Name: OSCAR LAWSON Room #: 205-P [facility] IN ..#: [id number] Admission: 12/21/20 Attend Phys: Benji Calderon MD Discharge: 12/24/20 Date of : 49 Report #: [id number] THIS REPORT FOR: //name// Report Transmitted: 12/25/2020 10:15 EMS Care Summary [place], [place]/[facility] Incident [id number] @ 12/21/2020 14:51 Incident Location [address] [place] [address] Patient OSCAR FOLEY Female, 75 Years 1945 Patient Address [address] [place] [address] Patient History Hypertension (HTN),Gastro-Esophageal Reflux Disease (GERD),End Stage Renal Disease (ESRD),Anemia,Neuropathy,Hyperparathyroidism,Chronic Kidney Disease, Patient Allergies No known allergies, Patient Medications Amlodipine, Folic acid, Torsemide, Omeprazole, Loperamide, Trazodone, Heparin, Alprazolam, Lidocaine, Carvedilol, Docusate Sodium, Ondansetron, Loratadine, Diphenhydramine, Chief Complaint ABD PAIN Disposition Transported Lights/[place] Dispatch Reason Abdominal Pain/Problems Transported To [facility] Narrative M41 DISPATCHED TO ABD PAIN. [address] [place] [address] EMS Patient Care Report Name: OSCAR LAWSON Room #: 205-P [facility] IN M.R.#: [id number] Admission: 12/21/20 Attend Phys: Benji Calderon MD Discharge: 12/24/20 Date of : 49 Report #: [id number] M41 AOS AND FOUND A FEMALE LYING IN HER BED. PT STATES THAT SHE HAS BEEN EXPERIENCING ABD PAIN AND SHE THINKS SHE HAS AN INFECTION AROUND HER CHOLOSTOMY. THE PT STATES THAT HH NURSE CALLED AFTER BANDAGING HER WOUND. AREA AROUND STOMA WAS VERY RED AND APPEARED INFECTED. THE PT HAS NO OTHER COMPLAINTS. PT DENIES CP, SOA, DIZZINESS, NV. VITALS OBTAINED WHICH SHOWED THE PT WAS HYPOTENSIVE. THE PT WISHES TO BE TRANSPORTED TO [facility]. I ADVISED PT AND FAMILY THAT HER BP WAS TOO LOW FOR TRANSPORT TO [facility] AND I ADVISED NEED TO INITIATE TRANSPORT TO A CLOSER FACILITY. AFTER CONSIDERING WHAT I TOLD THE FAMILY THEY AGREED THAT TRANSPORT TO A CLOSER FACILITY WAS NECESSARY. [employer]DITIONAL COMPANY CALLED FOR A LIFT ASSIST. PT MOVED TO THE COT VIA LON PHOTO OFFSET PRINTER. IN THE AMBULANCE IV ACCESS CONSIDERED BUT NO SITES WERE FOUND. PT STATES THAT SHE IS A HARD STICK WHICH IS WHY SHE HAS A MED PORT. M[address] [facility]. EN ROUTE PT REMAINED HYPOTENSIVE. PT BP DID INCREASE. REPORT GIVEN TO JOY ALEMAN. SIGNATURES OBTAINED. TRANSFER OF CARE TOOK PLACE. M41 IN SERVICE. ALICE CAMPOS COFFEE SHOP AIDE Initial Vitals @15:11P: 97,BP: 76/56,SpO2: 91, @15:04P: 97,BP: 74/52,SpO2: 95, @15:18P: 174,SpO2: 90, @15:20P: 104,BP: 61/28,CO: 0,SpO2: 95,HI Suspected: false @15:27P: 104,R: 18,BP: 113/81,Pain: 6/10,GCS: 15,CO: 1,SpO2: 94,Revised Trauma: 12, @15:03P: 94,R: 18,BP: 67/42,Pain: 6/10,GCS: 15,Glucose: 151,CO: 0,SpO2: 95,Revised Trauma: 10, Assessments @15:02MENTAL:Place Oriented,Person Oriented,Event Oriented,Time Oriented,SKIN:HEENT:Head/Face: No Abnormalities,Neck/Airway: No Abnormalities,LUNG SOUNDS:Left Lower: Tenderness,Left Upper: Other,General: No Abnormalities,ABDOMEN:Left Lower: Tenderness,Left Upper: Other,General: No Abnormalities,PELVIS//GI:No Abnormalities,EXTREMITIES:Left Arm: No [address] [address] EMS Patient Care Report Name: OSCAR LAWSON Room #: 205-P [facility] IN M.R.#: [id number] Admission: 12/21/20 Attend Phys: Benji Calderon MD Discharge: 12/24/20 Date of : 49 Report #: [id number] Abnormalities,Right Arm: No Abnormalities,Left Leg: No Abnormalities,Right Leg: No Abnormalities,PULSE:Radial: Absent,NEURO:No Abnormalities, Impression Abdominal Pain Procedures @15:02ALS AssessmentResponse: UnchangedSucceeded@15:203-Lead ECGResponse: UnchangedSucceeded Timeline 14:49,Dispatch Notified 14:50,Call Received 14:51,Dispatched 14:52,En Route 15:00,On Scene 15:01,At Patient 15:02,ALS Assessment,Response: UnchangedSucceeded, 15:03,BP: 67/42 M,PULSE: 94,RR: 18 R,SPO2: 95 Ox,ETCO2: ,B,PAIN: 6,GCS: 15, 15:04,BP: 74/52 M,PULSE: 97,RR: R,SPO2: 95 Ox,ETCO2: ,BG: ,PAIN: ,GCS: , 15:11,BP: 76/56 M,PULSE: 97,RR: R,SPO2: 91 Ox,ETCO2: ,BG: ,PAIN: ,GCS: , 15:17,Depart Scene 15:18,BP: / M,PULSE: 174,RR: R,SPO2: 90 Ox,ETCO2: ,BG: ,PAIN: ,GCS: , 15:20,BP: 61/28 M,PULSE: 104,RR: R,SPO2: 95 Ox,ETCO2: ,BG: ,PAIN: ,GCS: , 15:20,3-Lead ECG,Response: UnchangedSucceeded, 15:27,BP: 113/81 M,PULSE: 104,RR: 18 R,SPO2: 94 Ox,ETCO2: ,BG: ,PAIN: 6,GCS: 15, 15:29,At Destination 15:43,Call Closed Disclaimer v1.1 Copyright 2020 [employer] This EMS Care Summary contains data elements from the applicable legal record (which may be displayed differently). It is designed to provide pertinent information for the following purposes: continuity of care, clinical quality, and state data reporting. The complete legal record is available to ED staff and administrators of the receiving hospital in [employer]'s Patient Tracker. All data is provided "as is."
[~2020-12-21 15:33] MED LIST changes: +ACIDOPHILUS1 EAC4 PO; +ALPRAZOLAM 0.0.25 M1 PO; +BANOPHEN25 M1 PO; +CARVEDILOL12.5 MG PO; +CHOLESTYRAMINE L4 GM PO; +CIPRO500 M1 PO; +CLARITIN10 M3 PO; +DEMADEX20 MG PO; +DESYREL150 MG PO; +FLAGYL500 M1 PO; +LOMOTIL TABLET1 EACH PO; +LOPERAMIDE2 MG PO; +METRONIDAZOLE500 M4 PO; +MIDODRINE HCL 55 M1 PO; +OMEPRAZOLE 20 M20 M1 PO; +OXYCODONE HCL 55 MG PO; +SOLU-CORTE100 MG/21 CHEWABLE; +ZOFRAN4 MG PO
[2020-12-21 15:34] VITALS: BP 63/35
[2020-12-21 16:15] LABS: ABSOLUTE NEUTROPHILS 14.4 thou/uL (1.4-8.2); BASOPHILS 0.2 % (0.0-2.0); HEMATOCRIT 38.1 % (37.0-47.0); HEMOGLOBIN 11.7 gm/dL (12.0-15.0); MCH 26.9 pg (26.0-34.0); MCHC 30.6 g/dL (28.0-37.0); MCV 87.8 fL (80.0-100.0); PLATELET COUNT 201 thou/uL (150-400); POLYS 83.8 % (36.0-66.0); RBC 4.34 mil/uL (4.20-5.00); RDW 20.8 % (10.5-14.5); WBC 17.2 thou/uL (4.0-11.0)
[2020-12-21 16:23] LABS: ANION GAP 17 mmol/L (7-16); BUN 71 mg/dL (7-18); CHLORIDE 100 mmol/L (98-107); CO2 20 mmol/L (21-32); CREATININE 7.9 mg/dL (0.6-1.0); GLUCOSE 151 mg/dL (74-106); SODIUM 137 mmol/L (136-145)
[2020-12-21 16:40] LABS: ALBUMIN 2.4 g/dL (3.4-5.0); CALCIUM 9.5 mg/dL (8.5-10.1); SGOT 5 U/L (15-37); SGPT 13 U/L (30-65); TOTAL BILIRUBIN 0.6 mg/dL (0.2-1.0)
--- NOTE | 2020-12-21 16:57 | NUR ---
PER PATIENT AND DAUGHTER- PT CHRONICALLY HYPOTENSIVE.
[2020-12-21 21:02] VITALS: BP 79/46
[2020-12-21 21:45] VITALS: BP 83/56
[2020-12-21 22:00] VITALS: BP 82/51
[2020-12-22 04:00] VITALS: BP 87/59
--- NOTE | 2020-12-22 07:18 | EKG ---
[address] [address] ELECTROCARDIOGRAM REPORT Name: OSCAR LAWSON Room #: 205-[facility] IN ..#: [id number] Admission: 12/21/20 Attend Phys: Benji Calderon MD Discharge: Date of : 49 Report #: [id number] [facility] ED Test Date: 2020-12-21 Test Time: 15:35:28 Pat Name: OSCAR RUST TODD Department: Room: [facility] Gender: F Plant Controls Specialist: RED : 1945 Requested By: Florencio Ryan Order Number: [id number] MD: Jim Cantor Measurements Intervals [place] Rate: 101 P: 62 IN: 174 QRS: -42 QRSD: 86 T: 105 QT: 320 QTc: 415 Interpretive Statements Sinus tachycardia Inferior infarct, old Anteroseptal infarct, old Lateral leads are also involved Compared to ECG 12/10/2020 13:53:36 Sinus rhythm no longer present Left ventricular hypertrophy no longer present Early repolarization no longer present Myocardial infarct finding still present Electronically Signed On 12-22-2020 7:18:27 CDT by Jim Cantor [email or web address] <ELECTRONICALLY SIGNED> By: Jim Cantor MD, [facility] 12/22/20 0718 1535 1535 Jim Cantor MD, [facility] /EPI
--- NOTE | 2020-12-22 07:18 | EKG ---
[address] [address] ELECTROCARDIOGRAM REPORT Name: OSCAR LAWSON Room #: [facility] [place] [place] IN ..#: [id number] Admission: 12/21/20 Attend Phys: Benji Calderon MD Discharge: Date of : 49 Report #: [id number] [facility] ED Test Date: 2020-12-21 Test Time: 18:51:35 Pat Name: OSCAR BROOKS Department: Room: [facility] [place] [facility] [place] Gender: F Pharmacy Cashier: SHAVONNE : 1945 Requested By: Florencio Ryan Order Number: [id number] MD: Jim Cantor Measurements Intervals [place] Rate: 94 P: 26 HI: 183 QRS: -42 QRSD: 89 T: 113 QT: 333 QTc: 417 Interpretive Statements Sinus rhythm Inferior infarct, old Anteroseptal infarct, old Lateral leads are also involved Baseline wander in lead(s) V1 Compared to ECG 12/21/2020 15:35:28 Sinus tachycardia no longer present Myocardial infarct finding still present Electronically Signed On 12-22-2020 7:18:48 CDT by Jim Cantor [email or web address] <ELECTRONICALLY SIGNED> By: Jim Cantor MD, FAC 12/22/20 0718 185 50 Jim Cantor MD, [facility] /EPI
[2020-12-22 08:00] VITALS: BP 108/47
--- NOTE | 2020-12-22 08:41 | NUR ---
OSTOMY CARE; AWAKE, ALERT, COOPERATIVE, PT STATES SHE FELL ON MONDAY TRYING TO REACH FOR A PHONE, NO APPARENT INJURY, WENT TO DIALYSIS MONDAY, ON MONDAY ILEOSTOMY POUCH LEAKING, [facility] NURSE DID COME TO HOME, REAPPLIED POUCH BUT STARTED LEAKING AGAIN YESTERDAY, ABD SEVERELY EXCORIATIED ADRIAN, SOME AREAS BLEEDING, C/O PAIN MOSTLY DUE TO EXCORIATTION, COLOSTOMY STOMA L SIDE WITT SLOUGH,NO STOOL DRAINAGE PER COLOSTOMY NOTED, ILEOSTOMY STOMA R SIDE PERISTOMAL SKIN PARTIALLY DENUDED, EXCORIATED BUT ACTUALLY SLIGHTLY BETTER THAN LAST WEEK, STOMA RED VIABLE W/ LIQ BROWN STOOL NOTED, MARATHON SKIN PREP APPLIED, 4'LILLIANA RING AND ADAPT RING W/ HIGH OUTPUT ANTHONY POUCH APPLIED, CONNECTED TO DEP DRAINAGE, ABD WOUND MEASURES ~5CM X 2.5CM X5CM DEPTH, TANNISH DRAINAGE PRESENT BUT NO OBVIOUS STOOL PRESENT, PACKED W/ GAUZE, ABD PAD, TRANSPARENT DRSG UNTIL SEEN BY WOUND DR, BORDER FOAM DRSG TO OLD COLOSTOMY SITE, STAFF RNS PRESENT W/ CARE, SUPPLIES LEFT AT BS, PHOTOS TAKEN AND PLACED ON CHART RECOMMENDATIONS; MARATHON PREP PRN PERISTOMAL AREA, 2 PIECE HIGH OUTPUT POUCH TO ILEOSTOMY, BORDER FOAM TO OLD COLOSTOMY SITE LABELING ASSOCIATE AWARE
[2020-12-22 11:55] VITALS: BP 93/46
[2020-12-22 13:03] LABS: HEMOGLOBIN 11.7 gm/dL (12.0-15.0); MCH 27.9 pg (26.0-34.0); MCHC 32.5 g/dL (28.0-37.0); RBC 4.19 mil/uL (4.20-5.00); RDW 20.1 % (10.5-14.5); WBC 13.2 thou/uL (4.0-11.0)
[2020-12-22 13:12] LABS: CALCIUM 9.4 mg/dL (8.5-10.1); CREATININE 8.2 mg/dL (0.6-1.0)
[2020-12-22 13:13] LABS: POTASSIUM 4.6 mmol/L (3.5-5.1)
[2020-12-22 13:19] LABS: APTT 26.8 Seconds (24.5-32.8); INR 1.07; PROTIME 11.6 Seconds (10.5-12.1)
--- NOTE | 2020-12-22 15:02 | NUR ---
VAT TO ROOM, AROUND 1315, TO ASSESS PT FOR ADDITIONAL PIV. PT HAS HEPARIN IV ORDERED. CAN ONLY USE LEFT UE, SINCE RUE HAS FISTULA/GRAFT. ONLY PLACE VISUALIZED, WITH US FOR CANNULATION, IS LEFT AC SPACE. PT ON VANC, ZOSYN AND HEPARIN. PT HAS HAD MULTIPLE LINES. SCARS VISUALIZED RIGHT AND LEFT JUGULAR AREAS. THIS RN SPOKE WITH JOY GOODE AND STRONGLY RECOMMENDED IR PLACEMENT OF CVL.
[2020-12-22 16:00] VITALS: BP 86/36
--- NOTE | 2020-12-22 16:24 | NUR ---
5FRTL PLACED RT IJ FOR DIALYSIS PT FOR HEPARIN AND IV ABX.
--- NOTE | 2020-12-22 17:56 | NUR ---
RADIOLOGY REPORT THAT RIGHT IJ TIP PROJECTED DISTAL TO ACJ. PULLED BACK 3CM. RELEASED LINE FOR USE, PER HOSPITAL VASCULAR ACCESS POLICY.
[2020-12-23 03:11] VITALS: BP 86/53
--- NOTE | 2020-12-23 07:30 | NUR ---
PATIENTS CARES WERE ASSUMED AT SHIFT CHANGE. PATIENT WAS ASSESSED AND MEDS WERE HELD DUE TO PATIENT RECIEVING DIALYSIS AT THE START OF THIS SHIFT. PATIENT FAMILY REQUESTED PATIENT HAVE A REFERRAL FOR A PHYSIC EVAL DUE TO HER DEPRESSION. ALSO A REFERRAL FOR PHYSICAL THERAPY. THIS IS PASSED IN REPORT. PATIENT IS ON BEDREST. NOT SURE WHY SHE CAN NOT AMBULATE. ROUNDS WERE MADE AND THE BED WAS IN A LOW AND LOCKED POSITION.
[2020-12-23 07:57] VITALS: BP 84/53
[2020-12-23 11:06] VITALS: BP 81/40
--- NOTE | 2020-12-23 12:28 | HC ---
[facility] [place] [address] CONSULTATION Name: RUST TODDOSCAR Room #: 205-P ADM IN M.R.#: [id number] Admission: 12/21/20 Attend Phys: Benji Calderon MD Discharge: Date of : 49 Report #: [id number] THIS REPORT FOR: cc: Rosalia Zuñiga Mohammad K. DO Barry, Joseph W. MD ~ DATE OF SERVICE: 12/22/2020 HISTORY OF PRESENT ILLNESS: This is a 75-year-old woman known to myself, who was just hospitalized, discharged roughly 3-4 days ago to home. She has extensive medical history. She has end-stage renal disease on dialysis, previous history of diverticulitis, complicated by perforation and peritonitis, hospitalized several times and has had multiple surgeries. She has a chronic wound associated with the dehiscence in anterior abdominal wall. Apparently at home, she was found to have increasing inflammation at the site with drainage. She became progressively weak. Also noted increasing pain over the course of the last 48 hours. As a result, it was recommended she be reevaluated and transferred to hospital. Initial white count was elevated at 17.2. Lactic acid 3.0. Coronavirus testing was negative. Followup CT abdomen and pelvis showed the inflammatory process involving the abdominal wall. X-ray showed improvement. Developed a new mural thrombus along the medial wall of the right common iliac artery, right internal iliac artery as well with a new thrombus in the left internal iliac artery. Repeat blood cultures are sterile thus far. It is notable previous culture had multiple resistant Acinetobacter and most recent culture ____. She denies any pulmonary-related complaints. ALLERGIES: LISTED TO CODEINE. CURRENT MEDICATIONS: Include vancomycin, ____, tramadol, pantoprazole, Zosyn, insulin, midodrine. PAST MEDICAL HISTORY: As noted previously, hypertension; diabetes mellitus, non-insulin requiring; history of IBS; obstructive sleep apnea; end-stage renal disease, on dialysis. SOCIAL AND FAMILY HISTORY: Available in chart. REVIEW OF SYSTEMS: Otherwise, unremarkable except as noted above. PHYSICAL EXAMINATION: GENERAL: She appears chronically ill, undernourished. She is generally lucid, mild to moderate distress. VITAL SIGNS: Temperature 97.4, pulse 76, respirations 18, blood pressure is 93/46. SKIN: Warm, dry, no rashes. HEENT: Otherwise, unremarkable with the exception of poor dentition. [facility] [address] [place] [address] CONSULTATION Name: MYLES LAWSONJULIANA Azar Room #: 205-P [facility] IN [facility]#: [id number] Admission: 12/21/20 Attend Phys: Benji Calderon MD Discharge: Date of : 49 Report #: [id number] NECK: Supple. LUNGS: Few scattered coarse breath sounds. HEART: Regular, soft systolic murmur. ABDOMEN: Mildly distended. EXTREMITIES: There is a midline incision with dressing. Has an ostomy in place with drainage catheter. GENITOURINARY AND RECTAL: Deferred. LABORATORY DATA: Blood cultures sterile thus far. ____ as noted above. Lactic acid 2.4. Repeat procalcitonin is 0.35. ProBNP of 4229. CBC: White count of 17.2, H and H 11.7 and 38.1, platelets of 201. Electrolytes: Sodium 137, potassium 4.0, chloride 100, bicarbonate is 20, anion gap of 17, BUN and creatinine 71 and 7.9. LFTs unremarkable. Albumin 2.4, total protein of 6.0. ASSESSMENT AND PLAN: Abdominal wall incisional dehiscence with wound. There is suspicion of possible enterocutaneous fistula at this point. Continue combination therapy. Await results of susceptibilities. We will reintroduce minocycline based on previous culture, gram-negative. Would be concerned about a VRE. She is not overtly toxic at this point. Continue to monitor expectantly and ____ has fistulous tract, but particularly hopeful we will be able to eradicate. She voiced to me about possibility of stopping dialysis, need to have a matthew discussion whether to optimize her nutritional status and add incentive spirometry. <ELECTRONICALLY SIGNED> By: Juan Echeverria MD 12/23/20 1228 [id number] [id number] Juan Echeverria MD /nt
--- NOTE | 2020-12-23 14:28 | NUR ---
Case opened to follow for dc planning. Pt known to cm from recent dc home on 12/18 with HH per [facility]NA and resumption of her outpt dialysis at [facility] . The pt was dc'd to home dme per willard which including a pina lift and hospital bed. Pt's dtr Sharon and other family members were agreeable to 24hr care. The pt went to dialysis on Mon and the HH RN was out to see her Monday. Pt readmitted with ostomy issues/drng but also now with blood clots. ID/Surgery following and are questioning possible fistula. Attempted to reach dtr Sharon and left phone number for the unit. [facility] aware of her admission and will need orders at dc to resume. Raspberry Checker visited with the pt at bedside today and she is a&ox3 but can not recall events from the weekend. She notes her sister was here this am and her dtr is still the contact for coordination of care. Pt does not want to go to snf and wants to return home if able. Will request therapy evals. Cultures pending per ID. Pt on heprin gtt.
[2020-12-23 15:11] VITALS: BP 76/42
--- NOTE | 2020-12-23 16:20 | NUR ---
PT IS ALERT AND ORIENTED. CURRENTLY ON A HEPARIN GTT. LAST APTT WAS THERAPEUTIC. PT HAS COMPLAINTS OF PAIN IN BACK. PT HAS BEEN REPOSITIONED MULTIPLE TIMES FOR COMFORT. PRN TRAMADOL GIVEN FOR PAIN. PT TOLERATED MEALS AND MEDS. MEDS CRUSHED IN APPLESAUCE. PT IS HAVING THERESA 12/24/[address] TALLEY. DRESSING CLEAN, DRY, AND INTACT.
--- NOTE | 2020-12-23 16:25 | NUR ---
PT VESSELS IN BILAT UA ASSESSED WITH US AND NO VIABLE VEINS AVAILABLE FOR IV ACCESS. PT AGREED TO A RT JUGULAR PIV AND THE LINE WAS SUCCESSFULLY PLACED. IR TO DO TICC IN THE AM,
[2020-12-23 19:42] VITALS: BP 79/51
[2020-12-23 23:55] VITALS: BP 91/61
--- NOTE | 2020-12-24 04:47 | NUR ---
RECIEVED PATIENT ALERT AND ORIENTED X4.ON ROOM AIR BREATHING SPONTANEOUSLY.NOT IN DISTRESS.WITH ILEOSTOMY INTACT.W/ DRESSING AT HER ABDOMEN C/D/I.NOT IN DISTRESS.KEPT NPO FROM MIDNIGHT , FOR THERESA.ALL NEEDS ATTENDED.MEDS GIVEN PER JUN.
[2020-12-24 04:53] VITALS: BP 73/50
[2020-12-24 07:25] VITALS: BP 85/56
--- NOTE | 2020-12-24 08:16 | NUR ---
OSTOMY CARE; ALERT, COOPERATIVE, STATES SHE IS HAVING NO MORE TESTS AND IS STOPPING DIALYSIS, PT CALLED SON WHILE THIS [facility] NURSE WAS IN ROOM AND TOLD SON SHE IS LEAVING TODAY, WANTS TO GO HOME UNDER HOSPICE CARE. ILEOSTOMY POUCH STILL INTACT, BUT CHANGED TO ASSESS PERISTOMAL SKIN AND TX, STOMA RED VIABLE, LIQ BROWN BILISH STOOL NOTED, SLIGHT IMPROVEMENT, MARATHON PREP TO BLEEDING PERISTOMAL AREA, LILLIANA AND ADAPT RING APPLIED, HIGH OUTPUT POUCH ANTHONY CONNECTED TO DEP DRAINAGE, L SIDE COLOSTOMY STOMA WITT SLOUGHING OFF, COVERED W/ BORDER FOAM DRSG, SCANT DRAINAGE FROM MID LINE ABD WOUND, MEASURES ~5CM X 2.5CM X 5.5CM DEEP, DRAINAGE YELLOWISH BLACK, REPACKED W/ NS W/D GUAZE, ABD PAD AND TRANSPARENT DRSG. PHOTOS TAKEN OF STOMAS AND WOUND, PLACED ON CHART, SUPPLIES AT BS, DR HUDSON RECONSULTED FOR WOUND CARE, MESSAGE LEFT FOR CASE MANAGEMENT REGARDING PT WISH FOR HOSPICE CARE RECOMMENDATIONS; CHANGE POUCH Q 2-4 DAYS AND PRN, EMPTY PRN LAST CLEANER AWARE RECOMMENDATIONS; CHANGE POUCH
--- NOTE | 2020-12-24 08:28 | HC ---
[facility] [place] [address] CONSULTATION Name: OSCAR LAWSON Doe Room #: 205-P ADM IN M.R.#: [id number] Admission: 12/21/20 Attend Phys: Benji Calderon MD Discharge: Date of : 49 Report #: [id number] THIS REPORT FOR: cc: Rosalia Zuñiga,Antonio Obrien MD ~ cc: Benji Calderon MD, Bethel Ryan MD, Dr. Cantor, Marcus Coulter MD, Juan Echeverria MD, Rosalia Zuñiga DO REASON FOR CONSULTATION: Arterial clots in both left and right iliac arteries on CAT scan dated 12/21/2020. HISTORY OF PRESENT ILLNESS: The patient is a pleasant 75-year-old [place] female from the [facility], who by her own report and confirmed appears to be in and out of hospitals for the last 4 months. Of note is that she had a perforated diverticula and underwent coloscopy with ileoscopy at least at [facility], I believe she said in early 11/2017. She had been admitted here on 12/10/2020 to 12/16/2020 for hypotension passed on probably from her high output ileostomy. She is admitted again recently, I believe on 12/19/2020 because of a possible wound care and concern by home health. As part of this evaluation, she had undergone a CAT scan on 12/21/2020 and it was reported as showing mural thrombus that has developed in the medial wall of the right common iliac artery, spanning 2.5 cm in length. There is also new thrombus in the right internal iliac artery with moderately narrowed lumen. There is new thrombus in the left internal iliac artery. Interval development suggested emboli. They suggested consideration of echocardiography to look for potential source. There was no mention or concern about any malignancy. Recent chest x-ray shows a left IJ dialysis catheter, but no masses worrisome for malignancy. The patient is already scheduled for probable echocardiogram to look for embolic source. She has also had a hypercoag panel drawn including a T3, protein C, protein S, activated protein C, DRVVT, anticardiolipin antibodies and hexagonal phase phospholipid. Note that several of these, especially a T3, the hexagonal phase phospholipid and the DRVVT can be erroneously abnormal because of heparin anticoagulation. We will add on beta 2 glycoproteins as those can be a source for arterial clot if abnormal. The patient denies any prior history of clots either in herself personally or in family members or young age at diagnosis of heart attacks or strokes. PAST MEDICAL HISTORY: Quite notable or quite extensive and includes a history of the hemodialysis for 2 years per the patient, 3 recent ileostomy after the diverticular perforation, history of hypertension, but most recently hypotension with the high output ileostomy, type 2 diabetes, possible irritable bowel syndrome, history of sleep apnea, history of left total knee replacement, and past history of TIA in the past. [facility] [address] [place] [address] CONSULTATION Name: OSCAR LAWSON Room #: 205-P ADM IN M.R.#: [id number] Admission: 12/21/20 Attend Phys: Benji Calderon MD Discharge: Date of : 49 Report #: [id number] SOCIAL HISTORY: She used to work for the [employer], is originally from [place], lives with her in [facility], has other family members in town, does not have any pets at home. We will need to clarify her smoking and alcohol history on next exam. MEDICATIONS: At this time in the hospital include heparin on a weight-based protocol, minocycline 100 mg b.i.d., vancomycin on a scheduled basis, tramadol 50 q.6 p.r.n., insulin on a sliding scale, pantoprazole 40 daily, Zosyn q.12, midodrine 10 mg q.i.d., electrolyte replacement. MEDICATIONS: Tylenol p.r.n., Zofran p.r.n., has received some human albumin one time on admission. PHYSICAL EXAMINATION: VITAL SIGNS: Recent height is 5 feet 3 or 160.02 cm with a weight of 180 pounds or 81.65 kilograms. Recent blood pressure is 84/53 with respirations of 18, pulse of 76, O2 sat 96%, afebrile at 97.8. MOOD: She is pleasant, alert, conversant. Neurologically face is symmetrical. Speech and thought pattern appeared to be normal. Appears to have normal movement of arms and legs. FACE: Symmetrical. Does have poor dentition. LYMPHATICS: No enlarged lymph nodes in the supraclavicular, cervical, axillary or inguinal region. ABDOMEN: Somewhat obese, nontender, no masses. Does have ileostomy. EXTREMITIES: Trace edema. SKIN: Without any unusual ecchymosis or ulcerations other than you would have expect from lab draws. LABORATORY DATA: Shows recent creatinine of 8.2. Electrolytes with a potassium of 4.6, sodium 137, glucose has been 107 recently. Transaminases and total bilirubin recently been in normal range. Calcium 9.4, albumin 2.4. Coags before initiation of heparin included an INR of 1.07 and aPTT of 26.8. Recent white count 13.2, hemoglobin 11.7, stable. MCV 86.0, RDW 20.1, platelets 198, which has been fairly stable since at least 12/10/2020. Differential does have an increase in segmented neutrophils, no acute forms recently. UA not done recently, but had not shown red cells in the past. The patient denies any bleeding. She tells me her last colonoscopy and EGD were about 5 years ago without worrisome findings. ASSESSMENT AND PLAN: 1. 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 I agree with the plan for echocardiogram by Cardiology. Also agree with anticoagulation with dose adjusted heparin. Hypercoagulable be important, but I suspect her clot is most likely due to multiple admissions and inflammation from [address] [address] CONSULTATION Name: OSCAR LAWSON Room #: 205-P ADM IN ..#: [id number] Admission: 12/21/20 Attend Phys: Benji Calderon MD Discharge: Date of : 49 Report #: [id number] abdominal wounds and surgery, etc. However, if she does have an abnormal protein, this might give us indication for a longer duration of anticoagulation. Note that also some of these of abnormal such as the lupus anticoagulants would need to be repeat positive in 3 months to call this antiphospholipid syndrome. We would indeed also to check to make sure that is not a false positive while the patient is on heparin. 2. Hemodialysis and renal failure, defer to Nephrology. 3. High output ileostomy after colostomy for perforated diverticula, defer to others. 4. Diabetes. Sliding scale insulin and management per others. 5. History of hypotension, currently on midodrine. 6. Question of wound care related excoriations and ostomy. The patient on several anti-infectives at this time including but not limited to Zosyn and minocycline. 7. History of sleep apnea. We need to clarify use of CPAP at home. We will follow with you. <ELECTRONICALLY SIGNED> By: Antonio Jasso MD 12/24/20 [id number] Antonio Jasso MD /nt
--- NOTE | 2020-12-24 09:58 | NUR ---
FAXED PROGRESS NOTES FROM TODAY, 12/24 TO [facility]. WILL CONFIRM THEY RECEIVED. [facility] P [phone]; FAX [phone]
[2020-12-24 11:15] VITALS: BP 69/45
[2020-12-24 11:53] VITALS: BP 85/56
--- NOTE | 2020-12-24 11:57 | NUR ---
Hospice consult requested and discussed at bedside with the pt. She indicates that she is tired and wants to stop dialysis and go home today with hospice. She has advised her family and her physicians of her desire and wants to be a DNR. She denies any agency preference; just wants to make this happen today. Outside the hospital dnr from signed by the attending and the pt. Referral called and faxed to [facility] as they can have a liason in route shortly to visit with the pt and make arrangements for home today. They will contract with [facility] for her hospital bed that is currently in the home. Pt reports her sister jonn is to be the point person for arrangements today. [employer] form ready once dc time frame estb for hospice admission at home. Care team updated. Curtis is the hospice liason [phone] and she has arrived to visit with the pt and her family.
--- NOTE | 2020-12-24 12:10 | NUR ---
FAXED DISCHARGE ORDERS AND SUMMARY TO [facility]. WILL CONFIRM THEY RECEIVED. [facility] P [phone]; FAX [phone]
--- NOTE | 2020-12-24 12:22 | NUR ---
FAXED DISCHARGE ORDERS, SUMMARY, PROGRESS NOTE FROM DR. ALY TO D/C DIALYSIS AND NOTATION OF PATIENT BEGINNING SERVICES WITH [facility]. WILL CONFIRM THEY RECEIVED. [facility] P [phone]; FAX [phone]
--- NOTE | 2020-12-24 14:18 | NUR ---
FAXED DISCHARGE ORDERS, SUMMARY AND PROGRESS NOTE FROM DR. ALY STATING PATIENT NOT INTERESTED IN CONTINUING DIALYSIS ANYMORE. NOTED THAT PATIENT WILL BEGIN SERVICES WITH [facility] WHEN DISCHARGED. LAM[facility] MARINI P [phone]; FAX [phone]
[2020-12-24 15:30] VITALS: BP 85/56
[2020-12-24 15:47] VITALS: BP 85/56
[2020-12-24] MEDS ORDERED: MIDODRINE HCL 55 M1 PO (16:35)
[2020-12-24] MEDS ORDERED: CIPRO500 M1 PO (16:35)
[2020-12-24] MEDS ORDERED: METRONIDAZOLE500 M4 PO (16:36)
== END 2020-12-24 17:30 | disposition hospice, home (50) | DRG 871 ==
LOC: ER 15:33 → EROBS 21:29 → 2N 21:29
PROVIDERS: Nurse Practitioner; Nurse Practitioner Family; ADMIT Hospitalist; ATTEND Hospitalist
DX: A41.9 Sepsis, unspecified organism (principal); N18.6 End stage renal disease; E43 Unspecified severe protein-calorie malnutrition; T81.30XA Disruption of wound, unspecified, initial encounter; I74.5 Embolism and thrombosis of iliac artery; Z20.822 Contact with and (suspected) exposure to COVID-19; Z96.652 Presence of left artificial knee joint; E11.22 Type 2 diabetes mellitus with diabetic chronic kidney disease; G47.33 Obstructive sleep apnea (adult) (pediatric); R65.20 Severe sepsis without septic shock; I12.9 Hypertensive chronic kidney disease with stage 1 through stage 4 chronic kidney disease, or unspecified chronic kidney disease; I95.89 Other hypotension; Z90.710 Acquired absence of both cervix and uterus; Z86.73 Personal history of transient ischemic attack (TIA), and cerebral infarction without residual deficits; Z93.3 Colostomy status; Z88.6 Allergy status to analgesic agent; Z90.49 Acquired absence of other specified parts of digestive tract; Z82.49 Family history of ischemic heart disease and other diseases of the circulatory system
CPT/HCPCS: 10081; 32100